=== PATIENT | female | born 1965 | race Caucasian/White ===

== ENCOUNTER 2021-12-31 11:31 | Outpatient (REF) | payer OTHER, SELFPAY ==
--- NOTE | ~2021-12-31 | MM_ITS ---
EXAMINATION: MM SCREENING DIGITAL BREAST TOMOSYNTHESIS, BILATERAL CLINICAL INFORMATION: Screening. Asymptomatic. The lifetime risk of breast cancer based on the Tyrer-Cuzick Model is 5%. COMPARISON: Mammography: 04/26/2019, 05/06/2017, 09/11/2015 TECHNIQUE: Digital breast tomosynthesis is performed in both the craniocaudal and mediolateral oblique views along with computer-aided detection (CAD). Synthesized 2D images are generated from the tomosynthesis. FINDINGS: There are scattered areas of fibroglandular density (ACR BI-RADS breast composition Category b). There are no significant masses, abnormal calcifications, or other abnormalities. Parenchymal pattern is similar to prior studies. The axilla are unremarkable. No significant changes. MM/MM tomosynthesis screening BI IMPRESSION: No mammographic evidence of malignancy. ASSESSMENT: BI-RADS 1: Negative RECOMMENDATION: Routine annual mammography screening. This patient's information was entered into a reminder system with a target due date for their next mammogram.
[2021-12-31 11:41] LABS: MANUAL DIFF FLAG NO
[2021-12-31 12:34] LABS: Basophils Percent Auto 0.7 % (0-2); Eosinophils Percent Auto 0.7 % (0-4); Hematocrit 36.6 % (37.0-47.0); Hemoglobin 12.1 g/dl (12.0-16.0); Imm Gran Abs Auto 0.01 X10*3/uL (0.00-0.03); Imm Gran Pct Auto 0.2 % (0.0-0.4); Lymphocytes Absolute Auto 2.4 X10*3/uL (1.2-4.9); Mean Corpuscular HGB Conc 33.1 g/dl (31.0-35.0); Mean Corpuscular Hemoglobin 30.9 pg (27.0-33.0); Mean Corpuscular Volume 93.6 fL (80.0-98.0); Mean Platelet Volume 12.2 fL (9.4-12.3); Monocytes Absolute Auto 0.6 X10*3/uL (0.1-1.2); Neutrophils Absolute Auto 3.1 x10*3/uL (2.0-8.3); Neutrophils Percent Auto 50.4 % (45-73); Platelet Count 232 X10*3/uL (160-400); Red Blood Count 3.91 X10*6/uL (4.20-5.50); Red Cell Distribution Width 12.4 % (11.0-16.0); White Blood Count 6.1 X10*3/uL (4.8-10.8)
[2021-12-31 13:16] LABS: Alanine Aminotransferase 11 U/L (0-31); Albumin Level 4.4 g/dL (3.5-5.0); Alkaline Phosphatase 83 U/L (39-117); Anion Gap 12 (12-20); Aspartate Amino Transferase 19 U/L (5-31); Bilirubin Total 0.5 mg/dL (0.0-1.0); Blood Urea Nitrogen 12 mg/dL (9-16); Calcium 9.2 mg/dL (8.4-10.2); Carbon Dioxide 27 mmol/L (22-29); Chloride 108 mmol/L (96-108); Cholesterol 212 mg/dL; Estimated Glomerular Filt Rate > 60; Glucose Random 90 mg/dL (60-115); HDL Cholesterol 65 mg/dL; LDL Cholesterol Calculated 126 mg/dl; Potassium 4.6 mmol/L (3.3-5.1); Sodium 142 mmol/L (135-145); Total Protein 7.2 g/dL (6.5-8.0); Triglycerides 108 mg/dL
[2021-12-31 13:38] LABS: Free T4 (Free Thyroxine) 0.83 ng/dL (0.71-1.85); Thyroid Stimulating Hormone 0.39 uIU/mL (0.32-4.0); Vitamin D 25-OH Total 21.4 ng/mL (>30)
[2021-12-31 15:08] LABS: Folate 15.9 ng/mL (> or = 4.0); Vitamin B12 184 pg/mL (200-900)
== END 2021-12-31 11:32 | disposition home or self-care (01) ==
LOC: HO.MAMMO 11:31
PROVIDERS: PCP Internal Medicine; Visit Provider Internal Medicine
DX: Z12.31 Encounter for screening mammogram for malignant neoplasm of breast (principal); E78.00 Pure hypercholesterolemia, unspecified
CPT/HCPCS: 36415; 77063; 77067; 80053; 80061; 82306; 82607; 82746; 84439; 84443; 85025

== ENCOUNTER 2022-07-08 09:50 | Outpatient (REF) | payer OTHER, SELFPAY ==
--- NOTE | ~2022-07-08 | US_ITS ---
EXAMINATION: US ABDOMEN LIMITED WITH LIVER ELASTOGRAPHY CLINICAL INFORMATION: History of hepatitis C COMPARISON: 04/16/2017 TECHNIQUE: Real-time imaging of the abdominal viscera. Noninvasive ultrasound liver fibrosis assessment is performed using Marissa ElastPQ point quantification shear wave elastography (2D-SWE) with a C5-2 MHz transducer. Multiple elastography samples are obtained. FINDINGS: PANCREAS: Visualized proximal pancreas is normal. Tail the pancreas obscured by bowel gas. LIVER: 1.2 x 1.5 x 1.0 cm bilobed possibly septated cyst in the left lobe of liver. The right lobe measures 14.4 cm in length. The left lobe measures 11.6 cm in length. Portal flow is towards the liver (hepatopetal). Shear wave liver elastography median stiffness is 1.49 m/s (reference: normal median stiffness is 1.3 m/s or less). IQR/median stiffness to assess sampling precision is 0.17 (reference: good quality data set is IQR/median stiffness of 0.15 or less). GALLBLADDER: Normal. The gallbladder is physiologically distended without evidence of stones, sludge, polyps, wall thickening or pericholecystic fluid. COMMON BILE DUCT: Normal in caliber measuring cm in diameter. RIGHT KIDNEY: Normal. No hydronephrosis. No renal calculi or focal parenchymal lesions. The kidney measures 9.3 cm in maximum dimension. FREE FLUID: None. US/US abdomen astudillo w elastography IMPRESSION: 1. 1.5 cm bilobed, possibly septated cyst in the left lobe of the liver. 2. Liver elastography: Although measurements appear to rule out compensated advanced chronic liver disease, there is statistical variability of the sampling which decreases accuracy. REFERENCE: Society of Radiologists in Ultrasound Liver Stiffness Thresholds (2020): LIVER STIFFNESS THRESHOLDS: *Liver Stiffness equal or less than 1.3 m/s: High probability of being normal. *Liver Stiffness less than 1.7 m/s: In the absence of other known clinical signs, rules out compensated advanced chronic liver disease. QUALITY OF DATA SET: *IQR/Median value over 0.15 implies a poor quality data set. SIGNIFICANT CHANGE FROM PRIOR EXAM: Significant change if liver stiffness measurement is 10% or greater from prior exam. OTHER CONSIDERATIONS: The stage of liver fibrosis may be overestimated in the setting of acute hepatitis, liver inflammation, elevated liver function tests, hepatic vascular congestion, obstructive cholestasis, non-fasting state, and infiltrative diseases such as amyloidosis and lymphoma. In some patients with NAFLD, the liver stiffness thresholds for compensated advanced chronic liver disease may be lower. In causes other than viral hepatitis and NAFLD, liver stiffness thresholds are not well established.
== END 2022-07-08 09:51 | disposition home or self-care (01) ==
LOC: HO.US 09:50
PROVIDERS: PCP Internal Medicine; Visit Provider Internal Medicine
DX: Z86.19 Personal history of other infectious and parasitic diseases (principal)
CPT/HCPCS: 76705; 76981

== ENCOUNTER 2022-07-27 07:28 | Day surgery (SDC) | payer OTHER, SELFPAY ==
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
[2022-07-27 07:40] VITALS: BMI 22.6
[2022-07-27 07:52] VITALS: BP 182/94; PULSE 73; RESP 16; TEMP 36.4; O2SAT 100
[2022-07-27 07:58] VITALS: BP 141/84; PULSE 77
[2022-07-27] MEDS: Lactated Ringers 1,000 ML 100 ML IVCONT (08:03)
[2022-07-27 09:41] VITALS: BP 123/69; PULSE 74; RESP 16; TEMP 36.1; O2SAT 97
--- NOTE | 2022-07-27 09:41 | PM.OP ---
Brief Operative Note Date of Service: 07/27/22 Pre-op diagnosis: Screening, family history of colon cancer Post-op diagnosis: other (Diverticulosis) Procedure: Colonoscopy to the cecum and TI Surgeon: Tank Kramer Anesthesia: MAC Was an Maintenance Technician 3Rd Shift used for this Procedure?: No Estimated blood loss (mL): 0 Pathology: none sent Condition: stable Disposition: PACU
[2022-07-27 09:56] VITALS: BP 124/69; PULSE 68; RESP 16; O2SAT 100
[2022-07-27 10:11] VITALS: BP 138/73; PULSE 60; RESP 16; TEMP 36.2; O2SAT 100
--- NOTE | 2022-07-27 10:21 | HO.POSTANES ---
Post Anesthesia Evaluation Post Anesthesia Evaluation Vital Signs: Vital Signs Temp Pulse Resp BP Pulse Ox O2 Del Method 07/27/22 10:11 97.1 F 60 16 138/73 100 Room Air 07/27/22 09:56 68 16 124/69 100 Room Air 07/27/22 09:41 97 F 74 16 123/69 97 Room Air 07/27/22 07:58 77 141/84 H 07/27/22 07:52 97.6 F 73 16 182/94 H 100 Room Air Anesthesia: Monitored Mental Status: Awake Pain Control: Satisfactory Nausea/Vomiting: None Hydration: Adequate Anesthesia-Related Issues: No Anes. Related Issues
--- NOTE | 2022-07-27 11:50 | OP_ITS ---
SURGEON: Tank Kramer MD INDICATIONS: The patient presents for evaluation of colorectal cancer screening and family history of colon cancer. Full consent has been obtained from her for this, including risks of bleeding and perforation. PREOPERATIVE DIAGNOSIS: POSTOPERATIVE DIAGNOSIS: PROCEDURE PERFORMED: ESTIMATED BLOOD LOSS: COMPLICATIONS: ANESTHESIA: Monitored anesthesia care. ASSISTANTS: SPECIMENS: PREOPERATIVE DIAGNOSES: Colorectal cancer screening and family history of colon cancer. POSTOPERATIVE DIAGNOSES: Colorectal cancer screening and family history of colon cancer, diverticulosis, internal hemorrhoids. PROCEDURES PERFORMED: Colonoscopy to cecum and terminal ileum. DESCRIPTION OF PROCEDURE: The patient was placed in the left lateral decubitus position. The digital rectal exam revealed no abnormalities. The Olympus video pediatric colonoscope was entered into the rectum and advanced into the cecum. Advancement past the sigmoid colon was somewhat difficult due to probable adhesions. Once in the cecum, I did identify a normal-appearing cecal pouch with appendiceal orifice and a normal-appearing ileocecal valve. The terminal ileum was cannulated and appeared normal. The scope was withdrawn back in the colon. The entire cecum and ileocecal valve appeared normal. The scope was slowly withdrawn assessing all mucosal surfaces carefully. Preparation was excellent. I did not visualize any sign of polyps, colitis, nor angiodysplasia. There was a mild amount of sigmoid diverticulosis. The rectum was well seen in the forward viewing position. Attempts at retroflexing were not successful due to perhaps adhesions from her previous hysterectomy and bladder suspension. However, I did obtain a good look in the forward viewing position and the rectal mucosa appeared normal. The scope was withdrawn from the patient. She tolerated the procedure well and she returned to the recovery area in stable condition. IMPRESSION: 1. Diverticulosis. 2. Internal hemorrhoids. PLAN: Given her family history, I would recommend a repeat colonoscopy in 5 years. She was advised to see me in one year for a followup in regard to the previous history of hepatitis C. MD TEN Freedman/DAVE / [phone]
== END 2022-07-27 11:03 | disposition home or self-care (01) ==
PROVIDERS: PCP Internal Medicine; Visit Provider Internal Medicine
PROC: 0DJD8ZZ Inspection of Lower Intestinal Tract, Via Natural or Artificial Opening Endoscopic (ICD-10-PCS; CPT 45378; principal; 2022-07-27 08:30)
DX: Z12.11 Encounter for screening for malignant neoplasm of colon (principal); Z80.0 Family history of malignant neoplasm of digestive organs; K57.30 Diverticulosis of large intestine without perforation or abscess without bleeding; K64.8 Other hemorrhoids
CPT/HCPCS: 45378

== ENCOUNTER 2022-07-28 11:16 | Outpatient (REF) | payer OTHER, SELFPAY ==
[2022-07-28 12:10] LABS: Prothrombin Time 11.3 SEC (10.0-13.1)
[2022-07-30 12:13] LABS: Alpha Fetoprotein 3.4 ng/mL
[2022-07-30 19:42] LABS: HCV Log PCR <1.18 NOT DETECTED Log IU/mL (NOT DETECTED); HepC Viral Load <15 NOT DETECTED IU/mL (NOT DETECTED)
[2022-08-03 00:59] LABS: FIB-ALT 12 U/L (6-29); FIB-Alpha-2-Macroglobulin 306 mg/dL (106-279); FIB-Apolipoprotein A1 215 mg/dL (101-198); FIB-GGT 10 U/L (3-70); FIB-Haptoglobin 130 mg/dL (43-212); FIB-Total Bilirubin 0.3 mg/dL (0.2-1.2); Liver Fibrosis Stage F0; Nec Inflam Act Grade A0; Nec Inflam Act Score 0.03
== END 2022-07-28 11:17 | disposition home or self-care (01) ==
LOC: HO.LAB 11:16
PROVIDERS: PCP Internal Medicine; Visit Provider Internal Medicine
DX: Z86.16 Personal history of COVID-19 (principal)
CPT/HCPCS: 36415; 81596; 82105; 85610; 87522

== ENCOUNTER 2023-11-29 16:39 | Outpatient (AMB) | payer OTHER, SELFPAY ==
[2023-11-29 16:45] VITALS: BP 142/86; PULSE 73; O2SAT 98; BMI 23.7
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
== END 2023-11-29 17:23 | disposition home or self-care (01) ==
PROVIDERS: PCP Internal Medicine; Visit Provider Internal Medicine
DX: E78.00 Pure hypercholesterolemia, unspecified (principal); Z12.31 Encounter for screening mammogram for malignant neoplasm of breast; E53.8 Deficiency of other specified B group vitamins; N95.2 Postmenopausal atrophic vaginitis; R03.0 Elevated blood-pressure reading, without diagnosis of hypertension
CPT/HCPCS: 99214

== ENCOUNTER 2023-12-15 14:18 | Outpatient (REF) | payer OTHER, SELFPAY | END 2023-12-15 14:19 | disposition home or self-care (01) | LOC: HO.MAMMO 14:18 | PROVIDERS: PCP Internal Medicine; Visit Provider Internal Medicine | DX: Z12.31 Encounter for screening mammogram for malignant neoplasm of breast (principal) | CPT/HCPCS: 77063; 77067 ==

== ENCOUNTER → 2023-12-15 14:30 | Outpatient (BNV) | payer OTHER, SELFPAY | PROVIDERS: PCP Internal Medicine; Visit Provider Radiology Diagnostic Radiology | DX: Z12.31 Encounter for screening mammogram for malignant neoplasm of breast (principal) | CPT/HCPCS: 77063; 77067 ==

== ENCOUNTER 2023-12-21 07:17 | Outpatient (REF) | payer OTHER, SELFPAY ==
[2023-12-21 07:47] LABS: MANUAL DIFF FLAG NO
[2023-12-21 08:08] LABS: Basophils Absolute Auto 0.1 X10*3/uL (0.0-0.2); Basophils Percent Auto 0.9 % (0-2); Eosinophils Absolute Auto 0.1 X10*3/uL (0.0-0.4); Eosinophils Percent Auto 2.5 % (0-4); Hematocrit 39.4 % (37.0-47.0); Imm Gran Abs Auto 0.01 X10*3/uL (0.00-0.03); Imm Gran Pct Auto 0.2 % (0.0-0.4); Lymphocytes Absolute Auto 2.4 X10*3/uL (1.2-4.9); Lymphocytes Percent Auto 42.9 % (20-40); Mean Corpuscular Hemoglobin 30.8 pg (27.0-33.0); Mean Corpuscular Volume 93.4 fL (80.0-98.0); Mean Platelet Volume 11.8 fL (9.4-12.3); Monocytes Absolute Auto 0.6 X10*3/uL (0.1-1.2); Monocytes Percent Auto 10.1 % (2-11); Neutrophils Absolute Auto 2.4 x10*3/uL (2.0-8.3); Neutrophils Percent Auto 43.4 % (45-73); Platelet Count 220 X10*3/uL (160-400); Red Blood Count 4.22 X10*6/uL (4.20-5.50); Red Cell Distribution Width 12.6 % (11.0-16.0); White Blood Count 5.5 X10*3/uL (4.8-10.8)
[2023-12-21 08:39] LABS: Alanine Aminotransferase 12 U/L (0-31); Albumin Level 4.3 g/dL (3.5-5.0); Alkaline Phosphatase 85 U/L (39-117); Anion Gap 11 (12-20); Aspartate Amino Transferase 19 U/L (5-31); Bilirubin Total 0.4 mg/dL (0.0-1.0); Blood Urea Nitrogen 15 mg/dL (9-16); Calcium 9.8 mg/dL (8.4-10.2); Carbon Dioxide 29 mmol/L (22-29); Chloride 107 mmol/L (96-108); Cholesterol 220 mg/dL (<200); Estimated Glomerular Filt Rate > 60; Glucose Random 95 mg/dL (60-115); HDL Cholesterol 64 mg/dL (>40); LDL Cholesterol Calculated 130 mg/dL (<100); Potassium 4.4 mmol/L (3.3-5.1); Sodium 143 mmol/L (135-145); Total Protein 7.5 g/dL (6.5-8.0); Triglycerides 130 mg/dL (<150)
[2023-12-21 08:59] LABS: Thyroid Stimulating Hormone 0.74 uIU/mL (0.32-4.0); Vitamin D 25-OH Total 25.2 ng/mL (>30)
[2023-12-21 09:03] LABS: Folate 8.7 ng/mL (> or = 4.0); Vitamin B12 185 pg/mL (200-900)
== END 2023-12-21 07:18 | disposition home or self-care (01) ==
LOC: HO.LAB 07:17
PROVIDERS: PCP Internal Medicine; Visit Provider Internal Medicine
DX: E78.00 Pure hypercholesterolemia, unspecified (principal)
CPT/HCPCS: 36415; 80053; 80061; 82306; 82607; 82746; 84439; 84443; 85025

== ENCOUNTER 2024-02-21 15:20 | Outpatient (AMB) | payer OTHER, SELFPAY ==
[2024-02-21 15:26] VITALS: BP 130/72; PULSE 63; O2SAT 98; BMI 21.6
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
== END 2024-02-21 16:25 | disposition home or self-care (01) ==
PROVIDERS: PCP Internal Medicine; Visit Provider Internal Medicine
DX: R03.0 Elevated blood-pressure reading, without diagnosis of hypertension (principal); E53.8 Deficiency of other specified B group vitamins; E78.00 Pure hypercholesterolemia, unspecified
CPT/HCPCS: 99214

== ENCOUNTER 2024-04-13 13:18 | Outpatient (AMB) | payer OTHER, SELFPAY ==
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
[2024-04-13 13:32] VITALS: BP 116/78; PULSE 70; O2SAT 96; BMI 22.1
== END 2024-04-13 14:35 | disposition home or self-care (01) ==
PROVIDERS: PCP Internal Medicine
DX: N64.4 Mastodynia (principal); D22.9 Melanocytic nevi, unspecified

== ENCOUNTER → 2024-04-13 13:18 | Outpatient (BNVA) | payer OTHER, SELFPAY | PROVIDERS: PCP Internal Medicine | DX: N64.4 Mastodynia (principal); D22.5 Melanocytic nevi of trunk | CPT/HCPCS: 99212 ==

== ENCOUNTER 2024-06-05 11:37 | Outpatient (REF) | payer OTHER, SELFPAY ==
--- NOTE | ~2024-06-05 | US_ITS ---
EXAMINATION: MM DIAGNOSTIC DIGITAL BREAST TOMOSYNTHESIS, LEFT Limited left breast ultrasound. CLINICAL INFORMATION: Left breast pain. COMPARISON: Mammography: Comparison is made with available prior examinations. TECHNIQUE: Digital breast tomosynthesis is performed in both the craniocaudal and mediolateral oblique views along with computer-aided detection (CAD). Synthesized 2D images are generated from the tomosynthesis. Limited left breast ultrasound. FINDINGS: There are scattered areas of fibroglandular density (ACR BI-RADS breast composition Category b). Triangular marker denoting site of pain in the lower inner breast without underlying abnormality. There are no significant masses, abnormal calcifications, or other abnormalities. Targeted color Doppler left breast ultrasound scanning in the area of the patient's pain from 40 8:00 demonstrates normal fibronodular breast tissue. There is no sonographic abnormality. US/US breast LT limited mamm only IMPRESSION: No mammographic or sonographic abnormality to account for the patient's left breast pain. Recommend clinical evaluation and follow-up. ASSESSMENT: BI-RADS BI-RADS 1 - Negative RECOMMENDATION: 1 year F/U Results were provided to the patient at time of visit by the technologist. This patient's information was entered into a reminder system with a target due date for their next mammogram. Electronically signed by: Nory Morgan DO 06/05/2024 12:45 PM ANAID
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
== END 2024-06-05 11:38 | disposition home or self-care (01) ==
LOC: HO.MAMMO 11:37
PROVIDERS: PCP Internal Medicine
DX: N64.4 Mastodynia (principal)
CPT/HCPCS: 76642; 77061; 77065

== ENCOUNTER → 2024-06-05 11:45 | Outpatient (BNV) | payer OTHER, SELFPAY | PROVIDERS: PCP Internal Medicine; Visit Provider Internal Medicine | DX: N64.4 Mastodynia (principal); R92.322 Mammographic fibroglandular density, left breast | CPT/HCPCS: 76642; 77061; 77065 ==

== ENCOUNTER 2024-07-10 10:38 | Outpatient (AMB) | payer OTHER, SELFPAY ==
[2024-07-10 10:40] VITALS: BP 128/84; PULSE 76; O2SAT 99; BMI 21.9
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
--- OUTSIDE RECORDS SUMMARY | 2024-07-10 12:20 | XMS_ITS | Patient Health Record ---
Author Organization [facility] Address [address] [place] [address] Care Team Providers Care Harness Rigger Name Role Phone Karen James MD Primary Care Provider Tank Vora [phone] ALLERGIES No Known Allergies REASON FOR REFERRAL [...] malignant neoplasm of colon (Z12.11) Active confirmed 226727993 Problem Diverticulosis of large intestine without perforation or abscess without bleeding (K57.30) Active confirmed Diverticul ar disease of colon (236780444) Problem Family history of colon cancer (Z80.0) Active confirmed 017878820 Problem Constipation, unspecified constipation type (K59.00) Active confirmed 25850914 Problem History of hepatitis C (Z86.19) Active confirmed [id number] PLAN OF TREATMENT Pending Test Test Name Order Date LIVER PROFILE 03/18/2017 CBC w DIFF 03/18/2017 PROTHROMBIN TIME (PT, INR) 03/18/2017 PROTHROMBIN TIME (PT, INR) 05/29/2022 ALPHA-FETOPROTEIN,TUMOR MARKER 2 ALPHA-FETOPROTEIN,TUMOR MARKER 2 ALPHA-FETOPROTEIN,TUMOR MARKER 2 ALPHA-FETOPROTEIN,TUMOR MARKER 7 ALPHA-FETOPROTEIN,TUMOR MARKER 6 HEPATITIS C VIRAL LOAD 05/29/2022 HEPATITIS C VIRAL LOAD 11/13/2015 HCV LIVER FIBROSIS, FIBRO TEST 2 US ABDOMEN COMP WITH ELASTOGRAPHY 2021 Liver Fibrosis Pnl 07/28/2022 Future Test Test Name Order Date COLONOSCOPY 07/30/2011 COLONOSCOPY 03/18/2017 COLONOSCOPY 05/29/2022 Insurance Providers Payer Name Payer Address Payer Phone Subscriber Number Group Number Insured Name Patient Relationship to Insured Coverage Start Date Coverage End Date [facility] [address] [facility] [place] [phone] [id number] ALEJANDRA TODD Self - patient is the insured MEDICAL (GENERAL) HISTORY Medical History History ICD Code Constipation 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
== END 2024-07-10 11:06 | disposition home or self-care (01) ==
PROVIDERS: PCP Internal Medicine; Visit Provider Internal Medicine
DX: N64.4 Mastodynia (principal); E53.8 Deficiency of other specified B group vitamins; E78.00 Pure hypercholesterolemia, unspecified; R03.0 Elevated blood-pressure reading, without diagnosis of hypertension; B00.9 Herpesviral infection, unspecified

== ENCOUNTER → 2024-07-10 10:38 | Outpatient (BNVA) | payer OTHER, SELFPAY | PROVIDERS: PCP Internal Medicine; Visit Provider Internal Medicine | DX: N64.4 Mastodynia (principal); E53.8 Deficiency of other specified B group vitamins; E78.00 Pure hypercholesterolemia, unspecified; R03.0 Elevated blood-pressure reading, without diagnosis of hypertension; B00.9 Herpesviral infection, unspecified | CPT/HCPCS: 96127; 99212 ==

== ENCOUNTER 2024-07-11 12:41 | Outpatient (AMB) | payer OTHER, SELFPAY ==
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
[2024-07-11 13:09] VITALS: BMI 24.0
--- OUTSIDE RECORDS SUMMARY | 2024-07-11 14:47 | XMS_ITS | Patient Health Record ---
Author Organization [facility] Address [address] [place] [address] Care Team Providers Care O And M Supervisor Name Role Phone Karen James MD Primary Care Provider Tank Vora [phone] ALLERGIES No Known Allergies REASON FOR REFERRAL [...] malignant neoplasm of colon (Z12.11) Active confirmed 964977159 Problem Diverticulosis of large intestine without perforation or abscess without bleeding (K57.30) Active confirmed Diverticul ar disease of colon (306096324) Problem Family history of colon cancer (Z80.0) Active confirmed [id number] Problem Constipation, unspecified constipation type (K59.00) Active confirmed 34562081 Problem History of hepatitis C (Z86.19) Active confirmed [id number] PLAN OF TREATMENT Pending Test Test Name [...] Insured Coverage Start Date Coverage End Date [facility] [address] [facility] [place] [phone] [id number] ALEJANDRA TODD Self - patient is the insured MEDICAL (GENERAL) HISTORY Medical History History ICD Code Constipation 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
== END 2024-07-11 13:58 | disposition home or self-care (01) ==
PROVIDERS: PCP Internal Medicine; Visit Provider Orthopaedic Surgery
DX: M19.041 Primary osteoarthritis, right hand (principal); M19.042 Primary osteoarthritis, left hand; S68.621A Partial traumatic transphalangeal amputation of left index finger, initial encounter
CPT/HCPCS: 99204

== ENCOUNTER 2024-07-11 12:41 | Outpatient (REF) | payer OTHER, SELFPAY ==
--- NOTE | ~2024-07-11 | XR_ITS ---
EXAMINATION: XR HAND 3 OR MORE VIEWS RIGHT HISTORY: M79.641 - Pain in right hand COMPARISON: There are no prior studies available for comparison. FINDINGS: Three views of the right hand are submitted. The bones are osteopenic. There is no fracture or dislocation. There is mild to moderate osteoarthritis of the DIP joints and moderate to severe osteoarthritis of the 4th PIP joint, with joint space narrowing and osteophyte formation. There is mild narrowing of the 1st carpometacarpal joint. The soft tissues are unremarkable. XR/XR hand RT min 3V IMPRESSION: Osteoarthritis of the right hand as described. Electronically signed by: Tank Hernandez MD 07/12/2024 12:41 PM EST
--- NOTE | ~2024-07-11 | XR_ITS ---
EXAMINATION: XR HAND 3 OR MORE VIEWS LEFT HISTORY: M79.642 - Pain in left hand COMPARISON: There are no prior studies available for comparison. FINDINGS: Three views of the left hand are submitted. The bones are osteopenic. There is amputation of the index finger at the level of the base of the distal phalanx. There is severe osteoarthritis of the DIP joints of the 3rd, 4th, and 5th fingers with fusion of the 3rd DIP joint. There is severe osteoarthritis of the 3rd and 4th PIP joints and the 1st carpometacarpal joint. The soft tissues are unremarkable. XR/XR hand LT min 3V IMPRESSION: Osteopenia. Osteoarthritis of the left hand as described. Electronically signed by: Tank Hernandez MD 07/12/2024 12:43 PM ANAID
== END 2024-07-11 12:42 | disposition home or self-care (01) ==
LOC: HO.HOSX 12:41
PROVIDERS: PCP Internal Medicine; Visit Provider Orthopaedic Surgery
DX: M79.641 Pain in right hand (principal); M79.642 Pain in left hand; M19.041 Primary osteoarthritis, right hand; M19.042 Primary osteoarthritis, left hand; Z89.022 Acquired absence of left finger(s)
CPT/HCPCS: 73130; 99202

== ENCOUNTER 2024-08-25 13:49 | Outpatient (RCR) | payer OTHER, SELFPAY ==
--- NOTE | 2024-07-18 09:29 | MHC.OT.EP ---
[address] [phone] Occupational Therapy Plan of Care Patient Name: Jess Triana Date of Evaluation: 07/14/24 Diagnosis: Stiffness in B hands Pain Location: B hands Pain Score: 5 Pain Scale Used: Aggravating Factors: movement/ mornings / cold Alleviating Factors: ibuprofen (sometimes) Assessment: Pt is a 59 yr old R hand dominant female who reports stiffness and pain in B hands. She saw the MD who is sending her for further testing to determine if it is RA or psoriatic Arthritis. Pt has a diagnosis of OA as well and has Arthritic nodes noted on several digits (Herbeden's and Bouchards), and has pain in her B CMC J w/ palpation, with thenar wasting observed (bilateral). Pt would benefit from skilled OT therapy for joint protection, pain free motion, and strength for increased functional use of B hands. 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 Thank you once again for your referral.
--- NOTE | 2024-10-19 12:02 | MHC.OT.DC ---
[address] [phone] F: [phone] Occupational Therapy Discharge Note Patient Name: Jess Triana Provider: Sunitha Iyer Diagnosis: Stiffness in B hands Date of Surgery: Date of Evaluation: 07/14/24 Date of Discharge: Treatments to Date: 6 Cancellations to Date: No Shows to Date: Discharge Status: Discharge Summary: Pt was making progress @ last visit but not seen since 08/25 Electronically Signed By: Chiara Woodson OTR/L Reviewed/agree with student documentation: Therapist: Please Sign and return to therapist, thank you for your referral.
== END 2024-10-19 12:02 | disposition home or self-care (01) ==
LOC: HO.OT 13:49
PROVIDERS: PCP Internal Medicine; Visit Provider Orthopaedic Surgery
DX: M19.041 Primary osteoarthritis, right hand (principal); M19.042 Primary osteoarthritis, left hand
CPT/HCPCS: 97035; 97110; 97140; 97165; 97535

== ENCOUNTER 2024-10-13 07:20 | Outpatient (REF) | payer OTHER, SELFPAY ==
[2024-10-13 08:52] LABS: Alanine Aminotransferase 17 U/L (0-31); Albumin Level 4.2 g/dL (3.5-5.0); Anion Gap 12 (12-20); Aspartate Amino Transferase 28 U/L (5-31); Bilirubin Total 0.3 mg/dL (0.0-1.0); Blood Urea Nitrogen 16 mg/dL (9-16); Calcium 9.4 mg/dL (8.4-10.2); Carbon Dioxide 27 mmol/L (22-29); Chloride 108 mmol/L (96-108); Cholesterol 237 mg/dL (<200); Estimated Glomerular Filt Rate > 60; Glucose Random 89 mg/dL (60-115); HDL Cholesterol 66 mg/dL (>40); LDL Cholesterol Calculated 137 mg/dL (<100); Potassium 4.6 mmol/L (3.3-5.1); Sodium 142 mmol/L (135-145); Total Protein 7.3 g/dL (6.5-8.0); Triglycerides 174 mg/dL (<150)
[2024-10-13 09:03] LABS: Alkaline Phosphatase 83 U/L (39-117)
[2024-10-13 09:09] LABS: Vitamin D 25-OH Total 25.1 ng/mL (>30)
[2024-10-13 09:26] LABS: Vitamin B12 459 pg/mL (200-900)
== END 2024-10-13 07:21 | disposition home or self-care (01) ==
LOC: HO.LAB 07:20
PROVIDERS: PCP Internal Medicine; Visit Provider Internal Medicine
DX: E55.9 Vitamin D deficiency, unspecified (principal); E53.8 Deficiency of other specified B group vitamins; E78.00 Pure hypercholesterolemia, unspecified
CPT/HCPCS: 36415; 80053; 80061; 82306; 82607; 82746

== ENCOUNTER 2024-11-14 12:47 | Outpatient (AMB) | payer OTHER, SELFPAY ==
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
[2024-11-14 12:50] VITALS: BP 120/76; PULSE 59; O2SAT 98; BMI 25.1
--- OUTSIDE RECORDS SUMMARY | 2024-11-14 13:51 | XMS_ITS | Clinical Summary ---
Author Organization [facility] ity Address [address] [place] [address] Care Team Providers Care Lottery Office Manager Name Role Phone Unavailable Primary Care Provider Unavailabl e Social History Tobacco Use Types Packs/Day Years Used Date Smoking Tobacco: Never Assessed Comments Unknown Sex and Gender Information Value Date Recorded Sex Assigned at Not on file Legal Sex Female 10:04 PM EST Gender Identity Not on file Sexual Orientation Not on file Obstetrics History Plan of Treatment Health Maintenance Due Date Last Done Comments Breast Cancer Screening 1965 DTaP,Tdap,and Td Vaccines (1 - Tdap) 02/27/1983 Cervical Cancer Screening: P ap Smear 02/27/1985 Pneumococcal Vaccine: 50+ Ye ars (1 of 1 - PCV) 02/27/2014 Zoster Vaccines (1 of 2) 02/27/2014 COVID-19 Vaccine ( - 2023-2 5 season) 2024 Influenza Vaccine (Season Ended) 2025 RSV Immunization Adult Patie nts (1 - 1-dose 75+ series) 02/27/2039 HIB Vaccines Aged Out No longer eligi ble based on patient's age to complete this topic HPV Vaccines Aged Out No longer eligi ble based on patient's age to complete this topic Hepatitis A Vaccines Aged Out No long er eligible based on patient's age to complete this topic Hepatitis B Vaccines Aged Out No long er eligible based on patient's age to complete this topic IPV Vaccines Aged Out No longer eligi ble based on patient's age to complete this topic MMR Vaccines Aged Out No longer eligi ble based on patient's age to complete this topic Meningococcal ACWY Vaccine Aged Out N o longer eligible based on patient's age to complete this topic Meningococcal B Vaccine Aged Out No l onger eligible based on patient's age to complete this topic Pneumococcal Vaccine: Pediat rics (0 to 5 Years) and At-Risk Patients (6 to 64 Years) Aged Out No longer eligible b ased on patient's age to complete this topic RSV Immunization Patients Un eden 20 months Aged Out No longer eligible b ased on patient's age to complete this topic Varicella Vaccines Aged Out No longer eligible based on patient's age to complete this topic
--- OUTSIDE RECORDS SUMMARY | 2024-11-14 13:51 | XMS_ITS | Clinical Summary ---
Author Organization [facility] Address [address] [place] [address] Care Team Providers Care Director Of Epidemiology Name Role Phone Unavailable Primary Care Provider Unavailabl e Medications Medication Sig Dispensed Refills Start Date End Date Status chlorhexidine (PERIDEX) 0.12 % solution Swish and spit 15 mL 2 (two) times a day. 120 mL 0 06/18/2021 Active HYDROcodone-Acetaminoph en 5-217 MG/10ML SOLN solution Take 10 mL by mouth every 6 (six) hours as needed. 118 mL 0 06/18/2021 Active Social History Tobacco Use Types Packs/Day Years Used Date Smoking Tobacco: Never Assessed Sex and Gender Information Value Date Recorded Sex Assigned at Female 06/18/2021 4:21 PM EST Gender Identity Not on file Sexual Orientation Not on file Job Start Date Occupation Industry Not on file Not on file Not on file Last Filed Vital Signs Vital Sign Reading Time Taken Comments Blood Pressure 166/69 06/23/2021 4:01 PM EST Pulse 107 06/23/2021 4:01 PM EST Temperature 36.6 ??C (97.9 ??F) 06/23/2021 4:01 PM ES T Respiratory Rate 19 06/23/2021 4:01 PM EST Oxygen Saturation 96% 06/23/2021 4:01 PM EST Inhaled Oxygen Concentration - - Weight 64.4 kg (142 lb) 06/18/2021 1:32 PM EST Height 162.6 cm (5' 4 ) 06/18/2021 1:32 PM EST Body Mass Index 24.37 06/18/2021 1:32 PM EST Plan of Treatment Health Maintenance Due Date Last Done Comments Hepatitis C Screening 1965 COVID-19 Vaccine (#1) 1965 Depression Screening 1976 Preventative Health Evaluation 02/27/1982 DTap / Tdap / Td (1 - Tdap) 02/27/1983 Cervical Cancer Screening (P ap Smear) 02/27/1985 Colon Cancer Screening (Colonoscopy) 02/27/2009 Breast Cancer Screening (Mammogram) 02/27/2014 Shingrix-Zoster Vaccine (1 of 2) 02/27/2014 Influenza Vaccine (#1) 2024 RSV Adult > 60+ Yrs or Pregn ant (1 - 1-dose 75+ series) 02/27/2039 Hepatitis B Vaccines Aged Out No long er eligible based on patient's age to complete this topic Pneumococcal Vaccine Aged Out No long er eligible based on patient's age to complete this topic RSV Ped < 20 months Aged Out No longe r eligible based on patient's age to complete this topic Jess Triana TPL/AUTO Self 1965 [facility] [place] [address]
--- OUTSIDE RECORDS SUMMARY | 2024-11-14 13:51 | XMS_ITS | Patient Health Record ---
Author Organization [facility] Address [address] [place] [address] Care Team Providers Care Team Guide Name Role Phone Karen James MD Primary Care Provider Tank Vora [phone] Allergies No Known Allergies Reason For Referral No Information Medications Medication SIG (Take, Route, Fr equency, Duration) Notes Start Date End Date Status MoviPrep 100 GM 32 ounces(960ml) of water mixed with the Moviprep powder as directed, and then followed by at least 16 ounces of water as directed Orally Take the evening before and early on the morning of the colonoscopy as directed for 1 days 06/01/2022 Active Simvastatin Active Immunizations Vaccine Route Administration Date Status Comme nts Influenza Unknown 05/29/2022 Refused Problems Problem Type SNOMED Code ICD Code Onset Dates Problem Status W/U Status Risk Notes Problem 482785329 Encounter for screening for malignant neoplasm of colon (Z12.11) Active confirmed Problem Diverticulosis o f large intestine without perforation or abscess without bleeding (K57.30) Active confirmed Problem 734927371 Family history o f colon cancer (Z80.0) Active confirmed Problem 45443641 Constipation, unspecified constipation type (K59.00) Active confirmed Problem 46896243530137 History of hepatitis C (Z86.19) Active confirmed Plan Of Treatment Pending Test Test Name Order Date LIVER PROFILE 03/18/2017 CBC w DIFF 03/18/2017 PROTHROMBIN TIME (PT, INR) 03/18/2017 PROTHROMBIN TIME (PT, INR) 05/29/2022 ALPHA-FETOPROTEIN,TUMOR MARKER 2 ALPHA-FETOPROTEIN,TUMOR MARKER 6 ALPHA-FETOPROTEIN,TUMOR MARKER 7 ALPHA-FETOPROTEIN,TUMOR MARKER 2 ALPHA-FETOPROTEIN,TUMOR MARKER 2 HEPATITIS C VIRAL LOAD 05/29/2022 HEPATITIS C VIRAL LOAD 11/13/2015 HCV LIVER FIBROSIS, FIBRO TEST 2 US ABDOMEN COMP WITH ELASTOGRAPHY 2021 Liver Fibrosis Pnl 07/28/2022 Future Test Test Name Order Date COLONOSCOPY 07/30/2011 COLONOSCOPY 03/18/2017 COLONOSCOPY 05/29/2022 Insurance Providers Payer Name Payer Address Payer Phone Subscriber Number Group Number Insured Name Patient Relationship to Insured Coverage Start Date Coverage End Date [facility] [address] [place] [phone] [id number] JSSvetlana ALEJANDRA Self - patient is the insured Medical (General) History Medical History History ICD Code Constipation 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
== END 2024-11-14 13:28 | disposition home or self-care (01) ==
LOC: HO.HMCH 12:48
PROVIDERS: PCP Internal Medicine; Visit Provider Internal Medicine
DX: Z00.00 Encounter for general adult medical examination without abnormal findings (principal); M19.041 Primary osteoarthritis, right hand; M19.042 Primary osteoarthritis, left hand; E78.00 Pure hypercholesterolemia, unspecified; E55.9 Vitamin D deficiency, unspecified

== ENCOUNTER → 2024-11-14 12:47 | Outpatient (BNVA) | payer OTHER, SELFPAY | PROVIDERS: PCP Internal Medicine; Visit Provider Internal Medicine | DX: Z00.00 Encounter for general adult medical examination without abnormal findings (principal); M19.041 Primary osteoarthritis, right hand; M19.042 Primary osteoarthritis, left hand; E78.00 Pure hypercholesterolemia, unspecified; E55.9 Vitamin D deficiency, unspecified | CPT/HCPCS: 96127; 99396 ==

== ENCOUNTER 2025-02-22 15:48 | Outpatient (AMB) | payer OTHER, SELFPAY ==
[2025-02-22 15:52] VITALS: BP 122/62; PULSE 75; O2SAT 97; BMI 24.7
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
--- OUTSIDE RECORDS SUMMARY | 2025-02-22 16:10 | XMS_ITS | Clinical Summary ---
Author Organization [facility] Address [address] [place] [address] Care Team Providers Care Human Resources Representative Name Role Phone Unavailable Primary Care Provider [...] 107 06/23/2021 4:01 PM EST Temperature 36.6 C (97.9 F) 06/23/2021 4:01 PM EST Respiratory Rate 19 06/23/2021 4:01 PM EST [...] (1 of 2) 02/27/2014 Influenza Vaccine (#1) 2025 RSV Adult > 60+ Yrs or Pregn [...] on patient's age to complete this topic YuvalJuan R flanaganen TPL/AUTO Self 1965 [facility] [place] [id number]
--- OUTSIDE RECORDS SUMMARY | 2025-02-22 16:10 | XMS_ITS | Patient Health Record ---
Author Organization [facility] Address [address] [place] [address] Care Team Providers Care Torch Burner Name Role Phone Karen Jamse MD Primary Care Provider Tank Vora [phone] Allergies No Known Allergies Reason For Referral [...] Problem Status W/U Status Risk Notes Problem [id number] Encounter for screening for malignant neoplasm of colon (Z12.11) Active confirmed Problem Diverticular disease of colon (912372449) Diverticulosis of large intestine without perforation or abscess without bleeding (K57.30) Active confirmed Problem [id number] Family history o f colon cancer (Z80.0) Active confirmed Problem 74386050 Constipation, unspecified constipation type (K59.00) Active confirmed Problem [id number] History of hepatitis C (Z86.19) Active confirmed Plan Of Treatment Pending Test Test Name Order Date LIVER PROFILE 03/18/2017 CBC w DIFF 03/18/2017 PROTHROMBIN TIME (PT, INR) 03/18/2017 PROTHROMBIN TIME (PT, INR) 05/29/2022 ALPHA-FETOPROTEIN,TUMOR MARKER 12/02/202 2 ALPHA-FETOPROTEIN,TUMOR MARKER 2 ALPHA-FETOPROTEIN,TUMOR MARKER 6 ALPHA-FETOPROTEIN,TUMOR MARKER 7 ALPHA-FETOPROTEIN,TUMOR MARKER 2 HEPATITIS C VIRAL LOAD [...] Insured Coverage Start Date Coverage End Date [facility] [address] [place] [phone] [id number] ALEJANDRA TODD Self - patient is the insured Medical (General) History Medical History History ICD Code Constipation 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
--- OUTSIDE RECORDS SUMMARY | 2025-02-22 16:10 | XMS_ITS | Clinical Summary ---
Author Organization [facility] Address [address] [place] [phone] Phone Care Team Providers Care Head Start Teacher Name Role Phone Pcp, Unknown Primary Care Provider Unavailabl e Allergies No known active allergies Medications simvastatin (ZOCOR) 20 MG tablet Take 20 mg by mouth nightly at bedtime. Active Social History Tobacco Use Types Packs/Day Years Used Date Smoking Tobacco: Never Smokeless Tobacco: Never Alcohol Use Standard Drinks/Week Comments Never 0 (1 standard drink = 0.6 oz pur e alcohol) Education Answer Date Recorded Are you interested in more education? Not on vaibhav e 10/24/2022 Are you concerned about learning? Not on file 10/24/2022 No 10/24/2022 No 10/24/2022 Digital Access Answer Date Recorded No 11/22/2022 No 11/22/2022 No 11/22/2022 Reliable internet access at home? Not on file 11/22/2022 Device with a working camera? Not on file Comments Unknown Sex and Gender Information Value Date Recorded Sex Assigned at Not on file Legal Sex Female 3:14 PM EDT Gender Identity Not on file Sexual Orientation Not on file Last Filed Vital Signs Vital Sign Reading Time Taken Comments Blood Pressure 129/85 02/15/2021 3:33 PM EDT Pulse 87 02/15/2021 3:33 PM EDT Temperature 36.9 C (98.4 F) 02/15/2021 3:33 PM EDT Respiratory Rate 18 02/15/2021 3:33 PM EDT Oxygen Saturation 97% 02/15/2021 3:33 PM EDT Inhaled Oxygen Concentration - - Weight 64.9 kg (143 lb) 02/15/2021 3:33 PM EDT Height 162.6 cm (5' 4 ) 02/15/2021 3:33 PM EDT Body Mass Index 24.55 02/15/2021 3:33 PM EDT Plan of Treatment Health Maintenance Due Date Last Done Comments Adult Td,Tdap Booster 1965 LIPID PANEL 1965 DEPRESSION SCREENING 1976 HEPATITIS C SCREENING 02/27/1982 HIV ONE-TIME SCREENING (18-6 5 YEARS) 02/27/1982 PAP SMEAR 02/27/1985 MAMMOGRAM 2004 COLOGUARD 02/27/2009 COLONOSCOPY 02/27/2009 COLORECTAL CANCER SCREENING 02/27/2009 FIT TEST 02/27/2009 FOBT 02/27/2009 SIGMOIDOSCOPY 02/27/2009 VIRTUAL COLONOSCOPY 02/27/2009 PNEUMOCOCCAL VACCINES (50+ years) (1 of 1 - PCV) 02/27/2014 ZOSTER VACCINES (1 of 2) 02/27/2014 COVID-19 VACCINE (3 - 2023-2 5 season) 2024 12/09/2020, 11/11/2020 RSV VACCINE (1 - 1-dose 75+ series) 02/27/2039 SMOKING STATUS SCREENING (On ce After 26 Yrs) Completed 02/15/2021 HEPATITIS A VACCINES Aged Out No long er eligible based on patient's age to complete this topic HIB VACCINES Aged Out No longer eligi ble based on patient's age to complete this topic MENINGOCOCCAL VACCINES (ACWY) Aged Out No longer eligible based on patient's age to complete this topic MENINGOCOCCAL VACCINES (B) Aged Out N o longer eligible based on patient's age to complete this topic Medical Devices Not on file Care Teams Head Start Teacher Relationship Specialty Start Date End Date Pcp, Unknown PCP - General 02/15/21 Additional Source Comments The information contained in this document represents components of the legal health record. It is not the complete legal health record.[facility]
--- OUTSIDE RECORDS SUMMARY | 2025-02-22 16:10 | XMS_ITS | Clinical Summary ---
Author Organization [facility] Address [address] [place] [address] Care Team Providers Care Brine Well Operator Name Role Phone Unavailable Primary Care Provider [...] Vaccine ( - 2023-2 5 season) 2024 Depression Screening 06/28/2024 Influenza Vaccine (#1) 2025 RSV Immunization Adult Patie nts (1 [...]
== END 2025-02-22 17:25 | disposition home or self-care (01) ==
LOC: HO.HMCH 15:49
PROVIDERS: PCP Internal Medicine; Visit Provider Internal Medicine
DX: E78.00 Pure hypercholesterolemia, unspecified (principal); H61.21 Impacted cerumen, right ear

== ENCOUNTER → 2025-02-22 15:48 | Outpatient (BNVA) | payer OTHER, SELFPAY | PROVIDERS: PCP Internal Medicine; Visit Provider Internal Medicine | DX: H61.21 Impacted cerumen, right ear (principal); E78.00 Pure hypercholesterolemia, unspecified; E53.8 Deficiency of other specified B group vitamins; E55.9 Vitamin D deficiency, unspecified | CPT/HCPCS: 69210; 99212 ==